=== PATIENT | male | born 1960 | race American Indian/Alaskan Native ===

== ENCOUNTER 2019-07-08 08:01 | Day surgery (SDC) | payer OTHER ==
[~2019-07-08 08:01] MED LIST: SODIUM CHLORIDE 0.9% 1000 ML 1,000 ML IV SCH
[2019-07-08] MEDS ORDERED: WATER FOR IRRIG STERILE 250 ML BOTTLE IR ONE (08:56)
[2019-07-08] MEDS ORDERED: LIDOCAINE MPF (2%) 20 MG/1 ML VIAL 5 ML ONE (09:00)
[2019-07-08] MEDS ORDERED: PROPOFOL 200 MG/20 ML VIAL IV ONE ×2 (09:59)
--- NOTE | 2019-07-08 10:37 | Procedure Note ---
Date of procedure: 07/08/19 Pre-op diagnosis: Colon Polyp Screening Post-op diagnosis: other (Cecal Polyp (removed by cold snare polypectomy)/Normal, Ileal Mucosa/Minor,Internal Hemorrhoid) Procedure: Colonoscopy with Cold Snare Polypectomy and Cold Biopsy Anesthesia: MAC Surgeon: SUMAN CASTRO Estimated blood loss: minimal Pathology: list Specimen disposition: to lab Condition: stable Disposition: same day (Avoid aspirin and NSAID for 4 days; otherwise resume home medication. Follow up in 1 to 2 weeks ([phone]).)
--- NOTE | 2019-07-08 11:10 | Operative Report ---
PROCEDURE: Colonoscopy with cold snare polypectomy and cold biopsy. INDICATIONS: The patient is a 59-year-old -[place] gentleman with an underlying history of coronary artery disease, status post coronary artery bypass, who had a colonoscopy done several years ago. Repeat colonoscopy was done as part of colon polyp screening. DESCRIPTION OF PROCEDURE: The procedure was done after getting informed consent with MAC anesthesia. Initial rectal exam was unremarkable. Instrument was passed through the rectum onto the cecum, which was identified with ileocecal valve and appendiceal orifice. Visualization was fair. The terminal ileum was intubated and showed normal mucosa. In the cecum, there was a 10 mm polyp that was removed by snare cold polypectomy and also with cold biopsy that was taken from the edges and was retrieved. There was minimal bleeding from the polypectomy site and no complications associated with the procedure. The remaining part of the proximal colon, which included the remaining part of the cecum and ascending colon, the transverse colon, descending colon, and sigmoid showed normal mucosa. There were no additional polyps, colitis or diverticular disease noted and the rectum showed some minor internal hemorrhoid on the retroverted view. ASSESSMENT: Colon polyp screening, solitary cecal polyp removed by snare polypectomy and cold biopsy, minor internal hemorrhoid. Normal ileal mucosa. There was minimal bleeding associated with the procedure. The patient will be asked to avoid aspirin and aspirin-related postprocedure products for the next few days, but otherwise resume home medication and to follow up in the office in 1-2 weeks' time. The procedure was done in the GI lab with the assistance of the GI lab team, which included Kirsten ROBLERO Regina and with the assistance of anesthesia. [facility]# [id number] ELMA/JOSE DE JESUS
[2019-07-08 11:29] VITALS: BP 109/74
--- NOTE | 2019-07-08 14:53 | Anesthesia Consultation ---
Anesthesia Consult and Med Hx Date of service: 07/08/19 - Airway Anesthetic Teeth Evaluation: Good ROM Head & Neck: Adequate Mental/Hyoid Distance: Adequate Mallampati Class: Class II Intubation Access Assessment: Good - Pulmonary Exam CTA: Yes - Cardiac Exam Cardiac Exam: RRR - Pre-Operative Health Status ASA Pre-Surgery Classification: ASA2 Proposed Anesthetic Plan: MAC - Cardiovascular System Hx Hypertension: Yes Hx Coronary Artery Disease: Yes
--- NOTE | 2019-07-08 14:54 | Post Anesthesia Evaluation ---
- Post Anesthesia Evaluation Patient Participated: Yes Airway Patent: Yes Stable Respiratory Function: Yes Nausea/Vomiting: No Temp > 96.8F: Yes Pain Manageable: Yes Adequeate Hydration: Yes Anesthesia Complications: No Block Receding Appropriately: Not Applicable Patient on Ventilator: No
--- NOTE | 2019-07-08 14:54 | Anesthesia Day of Surgery ---
Anesthesia Day of Surgery - Day of Surgery Patient Examined: Yes Patient H&P Reviewed: Yes Patient is NPO: Yes
== END 2019-07-08 08:02 | disposition home or self-care (01) ==
LOC: GIO 08:01
DX: Z12.11 Encounter for screening for malignant neoplasm of colon (principal); D12.0 Benign neoplasm of cecum; K64.8 Other hemorrhoids; I10 Essential (primary) hypertension; I25.10 Atherosclerotic heart disease of native coronary artery without angina pectoris; Z86.010 Personal history of colon polyps
CPT/HCPCS: 45385; 88305; J2704; J7030